=== PATIENT | female | born 1960 | race Caucasian/White ===

== ENCOUNTER 2017-08-01 10:06 | Observation (INO) | payer OTHER ==
[~2017-08-01] VITALS: Ht 172.7 cm; Wt 53.7 kg
[~2017-08-01 10:06] MED LIST: ATACAND4 MG PO; BENADRYL25 MG PO; PLAQUENIL200 MG PO; PREDNISONE20 MG PO; PREDNISONE5 MG PO
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
--- NOTE | 2017-08-01 17:00 | NUR ---
PT MEDICATED WITH 2MG MORPHINE SLOW IVP AT THIS TIME. FOR PAIN 8/10 AT THIS TIME. PT NEEDED TO VOID, USED BEDPAN AT THIS TIME. VOIED 125ML YELLOW IN COLOR URINE. ALSO CLEANED UP THE BLOOD FROM PT FACE AND HAIR AND HEAD AREA. USED WARM TOWEL AND TRYED TO COMB OUT HAIR, BUT PT HEAD IS TOO SORE AT THIS TIME. PT HOB ELEVATED AT THIS TIME, NO NAUSEA OR VOMETING AT THIS TIME. PT C/O NECK PAIN, BUT DOES NOT WANT TO USE BEDSIDE COMMODE AT THIS TIME.
--- NOTE | 2017-08-01 17:56 | NUR ---
DR DIAS INTO SEE PT AT THIS TIME, NEW ORDERS RECEIVED AT THIS TIME. PT DIET HAS BEEN ADVANCED AT THIS TIME. CLEAR LIQUID TRAY ORDERED FOR PT AT THIS TIME.
--- NOTE | 2017-08-01 18:45 | NUR ---
DR DIAS INTO SEE PT NEW ORDERS. PT GIVEN CLEAR LIQUID TRAY AND DOING WELL WITH IT AT THIS TIME. LEFT EYE LACERATION DRAINING, NEW DRESSING PLACED AT THIS TIME. AT THE BEDSIDE. PT MEDICATED WITH 1 NORCO PO AT THIS TIME FOR PAIN 8.
--- NOTE | 2017-08-01 19:08 | EKG ---
[facility] [address] [facility] [place] [address] Signed Sinus bradycardia Voltage criteria for left ventricular hypertrophy T wave abnormality, consider lateral ischemia Abnormal ECG No previous ECGs available Confirmed by JEANNINE MORALES MD ([id number]) on 08/01/2017 7:07:52 PM Electronically Signed By: JEANNINE MORALES MD 08/01/17 1908 PATIENT NAME: MARCELLO MOSLEY Electrocardiogram DATE OF : 58 PHYSICIAN: JEANNINE MORALES MD REPORT #: [id number] REPORT IS CONFIDENTIAL AND NOT TO BE RELEASED WITHOUT AUTHORIZATION
--- NOTE | 2017-08-01 19:14 | NUR ---
PT CONTIOUES TO DO WELL WITH TAKING PO INTAKE. HOB REMAINS IN THE UPRIGHT POSITION, NO C/O'S NAUSEA OR VOMETING. REMAINS AT THE BEDSIDE.
--- NOTE | 2017-08-01 19:50 | NUR ---
SHIFT REPORT RECEIVED FROM KIRA GONZALEZ. PT UP TO BSC WITH SBA, VOIDED AND THEN RETURNED TO BED, TOLERATED MOVEMENT WELL. PT BOOSTED UP IN BED. PT HAS CALL LIGHT WITHIN REACH, PT'S AT BEDSIDE. WILL CONTINUE TO MONITOR.
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
--- NOTE | 2017-08-01 22:38 | NUR ---
PT APPEARS TO BE SLEEPING AT THIS TIME, NO APPARENT DISTRESS. RESPIRATIONS EVEN AND UNLABORED, RR: 10, SPO2:100% ON 2L VIA NC. WILL ALLOW FOR REST AND CONTINUE TO MONITOR.
--- NOTE | 2017-08-01 23:59 | NUR ---
PT SLEEPING, LIGHT SNORING HEARD. NO APPARENT DISTRESS. RESPIRATIONS EVEN AND UNLABORED, RR:10, SPO2:100% ON 2L. HR:60. IVF INFUSING WNL. SCD'S IN PLACE. WILL ALLOW FOR REST AND CONTINUE TO MONITOR.
--- NOTE | 2017-08-02 00:52 | NUR ---
IV PUMP WAS ALARMING, PT WAS AWAKE WHEN I WENT IN ROOM TO FIX IT. ASSESSMENT COMPLETED. PT ORIENTED, REPORTS 3/10 PAIN WHILE AT REST, DENIES NEED FOR PAIN MEDICATION AT THIS TIME. LUNGS REMAIN CLEAR, 2L O2 VIA NC IN PLACE. HR REGULAR. BOWEL TONES ACTIVE, DENIES NAUSEA. SWELLING TO FOREHEAD/LEFT EYE REMAINS UNCHANGED, DRESSING ABOVE LEFT EYE REMAINS C/D/I. NO OTHER CHANGES FROM PREVIOUS ASSESSMENT, WILL CONTINUE TO MONITOR.
--- NOTE | 2017-08-02 02:51 | NUR ---
PT CALLED AND REQUESTED TO USE BATHROOM, UP TO BSC WITH SBA. VOIDED 175ML AND THEN RETURNED TO BED, TOLERATED MOVEMENT WELL. AFTER RETURNING TO BED, PT REPORTS 4/10 PAIN IN RIBS AND HEAD AND REQUESTS PAIN MEDICATION, 1 TAB NORCO ADMINISTERED. PT REPORTS THE URGE TO COUGH AND REQUESTED COUGH MEDICINE, OFFERED HER HARD CANDY FOR NOW AND WILL SPEAK WITH DR. DIAS IN THE MORNING IN REGARDS TO COUGH MEDICATION, PT AGREEABLE TO THIS PLAN. PT DENIES FURTHER REQUESTS AT THIS TIME.
--- NOTE | 2017-08-02 04:26 | NUR ---
PT CONTINUES TO SLEEP, NO APPARENT DISTRESS. RESPIRATIONS EVEN AND UNLABORED, RR:13, SPO2: 100% ON 2L. HR:60. DRESSING TO FOREHEAD REMAINS C/D/I. IVF INFUSING WNL. SCD'S IN PLACE. WILL ALLOW FOR REST AND CONTINUE TO MONITOR.
--- NOTE | 2017-08-02 06:13 | NUR ---
[facility] CALLED TO LET ME KNOW THAT THEY WERE GOING TO BE COMING TO GET PT FOR XRAY SOON. I LET PT KNOW AND SALINE LOCKED HER IV. ALSO REMOVED O2 AT THIS TIME SINCE PT HAS BEEN AT 100% MAJORITY OF THE NIGHT. PT DENIES NEED FOR PAIN MEDICATION AT THIS TIME. WILL CONTINUE TO MONITOR.
--- NOTE | 2017-08-02 06:26 | NUR ---
PT DOWN TO X-RAY VIA WHEELCHAIR AT THIS TIME.
--- NOTE | 2017-08-02 06:47 | NUR ---
PT HAS RETURNED FROM X-RAY, REQUESTED TO USE BATHROOM, VOIDED 200ML AND THEN WALKED FROM BATHROOM BACK TO BED WITH SBA, PT TOLERATED WELL. AFTER RETURNING TO BED, PT RATES PAIN 3/10, 1 TAB NORCO ADMINISTERED PER REQUEST. IVF INFUSING WNL AND SCD'S ON. NEW ICE WATER PROVIDED. PT DENIES FURTHER REQUESTS AT THIS TIME, HAS CALL LIGHT WITHIN REACH.
--- NOTE | 2017-08-02 07:54 | NUR ---
PATIENT STATES SHE HAS CANE, WALKER AND EVEN A SCOOTER AT HOME IF SHE NEEDS IT AFTER DISCHARGE. WILL BE AROUND TO HELP HER. NO KNOWN BARRIERS AT DISCHARGE AT THIS TIME. PT STATES UNDERSTANDING OF FOLLOW UP WITH DR DIAS AND DR LEE.
--- NOTE | 2017-08-02 08:36 | NUR ---
pt sitting up in bed eatting bkf at this time, is at the bedside at this time. Pt states when coughing "i am coughing up stuff" it is noted that pt has brown in color sputum. Pt willing to take a shower this am after bkf.
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
--- NOTE | 2017-08-02 09:58 | NUR ---
PT UP TO THE SHOWER, WASHED HAIR. PT AMBULATED TO THE SHOWER 126 FROM 127. DID WELL WITH THIS PROCESS. DR DIAS INTO SEE PT AND PT WILL BE DISCHARGE TO HOME THIS AM.
[2017-08-02] MEDS ORDERED: ALENDRONATE SOD10 MG PO (10:26)
[2017-08-02] MEDS ORDERED: CELLCEPT250 MG PO (10:27)
--- NOTE | 2017-08-02 10:31 | NUR ---
MED REC COMPLETE
[2017-08-02] MEDS ORDERED: ZITHROMAX250 MG PO (10:40)
[2017-08-02] MEDS ORDERED: NORCO 5-325 TA1 EACH PO (10:41)
--- NOTE | 2017-08-02 11:16 | NUR ---
PT DISCHARGE TO HOME, TOOK AND WILL DRIVE PT HOME, RX FOR NEW MEDICATIONS GIVEN AND ALL PT EDUCATION AND DISCHARGE INFORMATION GIVEN. PT AND UNDERSTOOD ALL INSTRUCTIONS. ALL PERSOANL BELONGINGS RETURNED. PT TRANSPORTED VIA TO FRONT BY NURSING PERSONAL.
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
== END 2017-08-02 11:00 | disposition home or self-care (01) ==
LOC: ED 10:06 → CCU 10:07 → ED 12:08 → CCU 08-02 11:00
PROVIDERS: ADMIT Colon & Rectal Surgery
DX: S22.42XA Multiple fractures of ribs, left side, initial encounter for closed fracture (principal); S06.0X9A Concussion with loss of consciousness of unspecified duration, initial encounter; S27.0XXA Traumatic pneumothorax, initial encounter; S27.321A Contusion of lung, unilateral, initial encounter; S00.03XA Contusion of scalp, initial encounter; S01.81XA Laceration without foreign body of other part of head, initial encounter; M32.9 Systemic lupus erythematosus, unspecified; S00.12XA Contusion of left eyelid and periocular area, initial encounter; S00.11XA Contusion of right eyelid and periocular area, initial encounter; S22.31XA Fracture of one rib, right side, initial encounter for closed fracture; V43.53XA Car driver injured in collision with pick-up truck in traffic accident, initial encounter; Y92.410 Unspecified street and highway as the place of occurrence of the external cause; Z88.0 Allergy status to penicillin; Z79.899 Other long term (current) drug therapy; Z79.52 Long term (current) use of systemic steroids; Z23 Encounter for immunization
CPT/HCPCS: 36415; 70450; 70486; 71045; 71046; 71260; 72125; 74177; 80048; 80053; 82150; 82550; 83735; 84100; 85025; 86850; 86900; 86901; 86920; 90471; 90674; 90715; 93005; 93010; 96361; 96374; 96375; 96376; 99285; G0008; G0378; G0480; J2270; J2405; J2550; J7030; J7120; Q9967

== ENCOUNTER 2018-02-02 12:42 | Emergency (ER) | payer OTHER ==
[~2018-02-02] VITALS: Ht 172.7 cm; Wt 60.5 kg
[~2018-02-02 12:42] MED LIST changes: +ALENDRONATE SOD10 MG PO; +CELLCEPT250 MG PO; +NORCO 5-325 TA1 EACH PO; +ZITHROMAX250 MG PO
[2018-02-02] MEDS ORDERED: ALDACTONE25 MG PO (12:50)
[2018-02-02] MEDS ORDERED: CLEOCIN HCL300 MG PO (14:34)
== END 2018-02-02 14:50 | disposition home or self-care (01) ==
LOC: ED 12:42
DX: L03.115 Cellulitis of right lower limb (principal); M32.9 Systemic lupus erythematosus, unspecified; I10 Essential (primary) hypertension; Z88.0 Allergy status to penicillin; Z79.899 Other long term (current) drug therapy
CPT/HCPCS: 80053; 85025; 96365; 99283